=== PATIENT | female | born 1990 | race Caucasian/White ===

== ENCOUNTER 2017-11-09 10:32 | Observation (INO) | payer OTHER ==
--- NOTE | 2017-11-09 10:56 | EDPHY ---
HPI/HX/ROS/PE/MDM Narrative: CHIEF COMPLAINT: Pain under right rib HPI: This patient is a 26 year old female complaining of pain under her right ribs. She has had similar pain about once per year in the past, but this year it has become more frequent. This week, she has had similar pain several times. The pain is localized under her right rib and radiates across her chest and to her back. The discomfort seems to be associated with consumption of fatty foods. She endorses vomiting due to pain. She denies fever, diarrhea, urinary complaints, shortness of breath, or other associated symptoms. REVIEW OF SYSTEMS: Aside from elements discussed in the HPI, a comprehensive 10-point review of systems was reviewed and is negative. PMH: Foot surgery SOCIAL HISTORY: Student at [employer]. Family at bedside. Lives in [place]. PHYSICAL EXAM: General:Patient is alert, in no acute distress. ENT:Eyes are normal to inspection. ENT inspection normal. Neck: Normal inspection. Full range of motion. Respiratory:No respiratory distress. Breath sounds normal bilaterally. Cardiovascular: Regular rate and rhythm. Strong peripheral pulses. Normal cap refill. Abdomen: Severe epigastric and right upper quadrant tenderness. There are no peritoneal signs. There are normal bowel sounds. Back: Normal to inspection. No tenderness to palpation. Skin: Normal color. No rash. Warm and dry. Extremities: Normal appearance. Full range of motion. Neuro: Oriented x3. Normal motor function. Normal sensory function. ED Course: This patient is a 26 year old female presenting with episodes of upper abdominal pain, particularly after consumption of fatty foods. Exam reveals severe epigastric and right upper quadrant tenderness. Plan to administer Toradol for pain relief. Labs including CBC, BMP, BHCG, Liver, Lipase. Plan for ultrasound abdomen to r/o cholecystitis or other acute processes. BHCG positive. I will not administer Toradol at this time. Plan for BHCG quantitative. Reviewed additional laboratory studies. AST/ALT elevated. 11:[address] Arboleda, radiologist. US abdomen positive for 1.2cm gallstone at gallbladder neck. Plan for additional US to evaluate for IUP. 13:[address] Arboleda, radiologist. Obstetric US positive for IUP at 8 weeks 3 days. Discussed results of US and BHCG with patient. She is currently taking oral control pills and is surprised by this result. She will reveal this to her family. She plans to proceed with surgical intervention for cholecystitis. Consulted with patient and her family. They request Dr. Day for surgery. Plan to consult with general surgery prescriptionist. Dr. Day is not available at this time. Family accepts consult with Dr. Hartman, general surgeon prescriptionist. 13:[address] Hartman. He will consult. 14:05 Dr. Hartman accepts admission for perioperative management of cholecystitis. - Data Points Imaging Results: Imaging Impressions Abdomen Ultrasound 11/09/17 10:57 Impression: 1. Cholelithiasis with 1.5 cm gallstone lodged in the gallbladder neck, gallbladder wall thickening with pericholecystic fluid, suggesting acute cholecystitis. 2. No biliary ductal dilation. Findings and recommendations discussed with Emergency Department physician, Yonis Kent MD at 11:35 hour, 11/09/2017. Final report concurs with initial preliminary interpretation. Obstetrics Ultrasound 11/09/17 11:52 Impression: 1. Single viable intrauterine gestation with estimated gestational age of 8 weeks 3 days. 2. FHR = 164 BPM. 3. Recommend followup anatomy scan between 19 and 20 weeks gestation. 4. Complex cystic 9 mm structure from the myometrium extending into the gestational sac representing vanishing twin versus a small subchorionic hemorrhage. 5. No adnexal masses, or ovarian torsion. Findings and recommendations discussed with Emergency Department physician, Yonis Kent MD at 13:00 hour, 11/09/2017. Final report concurs with initial preliminary interpretation. Imaging: Discussed imaging studies w/ church supervisor Radiologist, I viewed and interpreted images myself Laboratory Results: Laboratory Results 11/09/17 10:55 11/09/17 10:55 11/09/17 11/09/17 11/09/17 10:55 10:55 10:55 WBC RBC Hgb Hct MCV MCH MCHC RDW Plt Count MPV Neut % (Auto) Lymph % (Auto) Adams % (Auto) Eos % (Auto) Baso % (Auto) Nucleat RBC Rel Count Absolute Neuts (auto) Absolute Lymphs (auto) Absolute Monos (auto) Absolute Eos (auto) Absolute Basos (auto) Absolute Nucleated RBC Immature Gran % Immature Gran # Sodium 140 mEq/L mEq/L (134-144) Potassium 3.9 mEq/L mEq/L (3.5-5.2) Chloride 107 mEq/L mEq/L (97-110) Carbon Dioxide 19 mEq/l L mEq/l (22-31) Anion Gap 14 mEq/L mEq/L (8-16) BUN 5 mg/dL L mg/dL (7-23) Creatinine 0.6 mg/dL mg/dL (0.6-1.0) Estimated GFR > 60 Glucose 107 mg/dL H mg/dL (70-100) Calcium 9.8 mg/dL mg/dL (8.5-10.4) Total Bilirubin 1.0 mg/dL mg/dL (0.1-1.4) Conjugated Bilirubin 0.4 mg/dL mg/dL (0.0-0.5) Unconjugated Bilirubin 0.6 mg/dL mg/dL (0.0-1.1) AST 64 IU/L H IU/L (14-46) ALT 164 IU/L H IU/L (9-52) Alkaline Phosphatase 71 IU/L IU/L (38-126) Total Protein 7.2 g/dL g/dL (6.3-8.2) Albumin 4.2 g/dL g/dL (3.5-5.0) Lipase 72 IU/L IU/L (23-300) Beta HCG, Qual POSITIVE Beta HCG, Quant 11910.00 mIU/mL H mIU/mL (0.00-4.83) 11/09/17 10:55 WBC 10.83 10^3/uL H 10^3/uL (3.80-9.50) RBC 4.46 10^6/uL 10^6/uL (4.18-5.33) Hgb 13.7 g/dL g/dL (12.6-16.3) Hct 38.6 % % (38.0-47.0) MCV 86.5 fL fL (81.5-99.8) MCH 30.7 pg pg (27.9-34.1) MCHC 35.5 g/dL g/dL (32.4-36.7) RDW 12.2 % % (11.5-15.2) Plt Count 235 10^3/uL 10^3/uL (150-400) MPV 8.9 fL fL (8.7-11.7) Neut % (Auto) 77.1 % H % (39.3-74.2) Lymph % (Auto) 14.7 % L % (15.0-45.0) Adams % (Auto) 7.6 % % (4.5-13.0) Eos % (Auto) 0.0 % L % (0.6-7.6) Baso % (Auto) 0.3 % % (0.3-1.7) Nucleat RBC Rel Count 0.0 % % (0.0-0.2) Absolute Neuts (auto) 8.36 10^3/uL H 10^3/uL (1.70-6.50) Absolute Lymphs (auto) 1.59 10^3/uL 10^3/uL (1.00-3.00) Absolute Monos (auto) 0.82 10^3/uL H 10^3/uL (0.30-0.80) Absolute Eos (auto) 0.00 10^3/uL L 10^3/uL (0.03-0.40) Absolute Basos (auto) 0.03 10^3/uL 10^3/uL (0.02-0.10) Absolute Nucleated RBC 0.00 10^3/uL 10^3/uL (0-0.01) Immature Gran % 0.3 % % (0.0-1.1) Immature Gran # 0.03 10^3/uL 10^3/uL (0.00-0.10) Sodium Potassium Chloride Carbon Dioxide Anion Gap BUN Creatinine Estimated GFR Glucose Calcium Total Bilirubin Conjugated Bilirubin Unconjugated Bilirubin AST ALT Alkaline Phosphatase Total Protein Albumin Lipase Beta HCG, Qual Beta HCG, Quant Medications Given: Discontinued Medications Ketorolac Tromethamine (Toradol) 15 mg IVP EDNOW ONE Stop: 11/09/17 13:27 Last Admin: 11/09/17 13:30 Dose: 15 mg General Time Seen by Provider: 11/09/17 10:33 Initial Vital Signs: Initial Vital Signs Temperature (C) 36.8 C 11/09/17 10:45 Heart Rate 74 11/09/17 10:45 Respiratory Rate 16 11/09/17 10:45 Blood Pressure 124/66 H 11/09/17 10:45 O2 Sat (%) 99 11/09/17 10:45 O2 Delivery Mode Room Air Allergies/Adverse Reactions: No Known Allergies Allergy (Unverified 11/09/17 10:44) Home Medications: Medication Instructions Recorded Levothyroxine [Synthroid 100 mcg 100 mcg PO DAILY06 11/09/17 (*)] Norethindrone AC-Eth Estradiol 1 each PO DAILY 11/09/17 [Nirali 1.5 mg-30 Mcg Tablet] Departure - Departure Disposition: [facility] Inpatient Acute Clinical Impression: Cholecystitis Condition: Good Report Scribed for: Yonis Kent Report Scribed by: Ginny Jones Date of Report: 11/09/17 Time of Report: 10:56 Physician Review and Approval Statement: Portions of this note were transcribed by an ED scribe. I personally performed the history, physical exam, and medical decision making; and confirm the accuracy of the information in the transcribed note.
[2017-11-09 11:08] LABS: PLATELET COUNT 235 10^3/uL (150-400)
[2017-11-09] MEDS ORDERED: KETOROLAC 30 MG/1 ML SDV IVP ONE (13:26)
[2017-11-09] MEDS ORDERED: KETOROLAC 15 MG/1 ML SDV ONE (13:29)
[2017-11-09] MEDS ORDERED: ONDANSETRON 4 MG/2 ML VIAL IVP ONE (14:18)
[2017-11-09] MEDS ORDERED: DEXAMETHASONE 4 MG/ML VIAL IVP ONE (14:18)
[2017-11-09] MEDS ORDERED: ceFAZolin 2 GM/SWFI 2 GM/20 ML SYR IVP ONE (14:18)
[2017-11-09] MEDS ORDERED: ONDANSETRON 4 MG/2 ML VIAL IVP PRN ×3 (14:20→18:49)
[2017-11-09] MEDS ORDERED: LR 1,000 ML IV SCH ×2 (14:30→19:00)
--- NOTE | 2017-11-09 14:39 | GHP ---
[f rep st] HISTORY AND PHYSICAL DATE OF ADMISSION: 11/09/2017 CHIEF COMPLAINT: Right upper quadrant pain. HISTORY OF PRESENT ILLNESS: Numerous attacks of right upper quadrant pain for this 26-year-old femal tiarra, the current one lasting for 3 days. An ultrasound in the emergency room shows a stone impacted in the neck of the gallbladder. Laboratory exams are normal. Urine test was positive. The patient apparently has an 8-week unsuspected intrauterine despite taking control pill s. Apparently, she does not want to maintain this , but we will not be dealing with that to day. ALLERGIES: None. CURRENT MEDICATIONS: control pills, levothyroxine. PREVIOUS SURGERY: Right foot x2. REVIEW OF SYSTEMS: Denies asthma, heart trouble, diabetes, epilepsy, rheumatic fever. SOCIAL HISTORY: Nonsmoker. No alcohol use. 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 PHYSICAL EXAMINATION: GENERAL: Pleasant female in minimal distress. HEENT: No scleral icterus. P harynx clear. NECK: Supple without adenopathy. LUNGS: Clear. HEART: Normal S1, S2 without murmu r. ABDOMEN: Soft but a positive Masterson sign is present. A piercing is present in the left lower qu adrant. EXTREMITIES: Grossly normal. NEUROLOGIC: Grossly normal. ASSESSMENT: Impacted stone in the neck of the gallbladder, 3 days of pain. RECOMMENDATIONS: Laparoscopic cholecystectomy. The risks and benefits of the proposed procedure, in cluding the potential for infection, bleeding, injury to other structures, need for an open operation , etc., were explained to the patient. /[id number]/MODL
--- NOTE | 2017-11-09 16:12 | PDANEPAE ---
ANE History of Present Illness laparoscopic cholecystectomy ANE Past Medical History - Pulmonary History Hx Oxygen in Use at Home: No Hx Sleep Apnea: No Sleep Apnea Screening Result - Last Documented: Negative - Endocrine History Hx Diabetes: No Hypothyroid: Yes ANE Review of Systems Review of systems is: negative Review of Systems: - Exercise capacity Exercise capacity: >=4 METS ANE Patient History - Allergies Allergies/Adverse Reactions: No Known Allergies Allergy (Unverified 11/09/17 10:44) - Home Medications Home medications: home medication list seen and reviewed Home Medications: Levothyroxine [Synthroid 100 mcg (*)] 100 mcg PO DAILY06 11/09/17 [Last Taken ] Norethindrone AC-Eth Estradiol [Nirali 1.5 mg-30 Mcg Tablet] 1 each PO DAILY 11/26 [Last Taken 11/08/17] - NPO status NPO Since - Liquids (Date): 10/09/18 NPO Since - Liquids (Time): 09:30 NPO Since - Solids (Date): 11/08/17 NPO Since - Solids (Time): 20:30 - Anes Hx Anes Hx: post operative nausea - Smoking Hx Smoking Status: Former smoker - Family Anes Hx Family Anes Hx: none ANE Labs/Vital Signs - Labs Result Diagrams: 11/09/17 10:55 11/09/17 10:55 - Vital Signs Blood Pressure: 116/69 Heart Rate: 77 Respiratory Rate: 16 O2 Sat (%): 96 Height: 177.8 cm Weight: 81.647 kg ANE Physical Exam - Airway Neck exam: FROM Mallampati Score: Class 1 Mouth exam: normal dental/mouth exam - Pulmonary Pulmonary: no respiratory distress - Cardiovascular Cardiovascular: regular rate and rhythym - ASA Status ASA Status: II ANE Anesthesia Plan Anesthesia Plan: general endotracheal anesthesia
[2017-11-09] MEDS ORDERED: ceFAZolin 2 GM/SWFI 20 ML SYR IVP ONE (16:35)
[2017-11-09] MEDS ORDERED: BUPIVACAINE 0.5% 30 ML SDV ONE (16:43)
[2017-11-09] MEDS ORDERED: ROCURONIUM 50 MG/5 ML VIAL ONE ×2 (17:02→18:03)
[2017-11-09] MEDS ORDERED: fentaNYL 250 MCG/5 ML INJ ONE (17:02)
[2017-11-09] MEDS ORDERED: PROPOFOL 200 MG/20 ML VIAL ONE ×2 (17:02→17:16)
[2017-11-09] MEDS ORDERED: ONDANSETRON 4 MG/2 ML VIAL ONE (17:02)
[2017-11-09] MEDS ORDERED: LIDOCAINE 2% 100 MG/5 ML SYR ONE (17:02)
[2017-11-09] MEDS ORDERED: SUGAMMADEX SODIUM 200 MG/2 ML VIAL IVP ONE ×2 (17:02→17:44)
[2017-11-09] MEDS ORDERED: DEXAMETHASONE 4 MG/ML VIAL ONE (17:02)
[2017-11-09] MEDS ORDERED: DEXAMETHASONE 4 MG/ML VIAL IVP PRN (18:06)
[2017-11-09] MEDS ORDERED: OXYCODONE/APAP 5/325 TAB PO PRN (18:06)
[2017-11-09] MEDS ORDERED: PROMETHAZINE HCL 25 MG/ML INJ IVP PRN (18:06)
[2017-11-09] MEDS ORDERED: SURGIFLO MATRIX KIT WITH THROMBIN 8ml TP ONE (18:06)
[2017-11-09] MEDS ORDERED: HYDROCODONE/APAP 5/325 TAB PO PRN (18:06)
[2017-11-09] MEDS ORDERED: NALOXONE HCL 0.4 MG/ML INJ IVP PRN (18:06)
[2017-11-09] MEDS ORDERED: ACETAMINOPHEN 500 MG TAB PO PRN (18:06)
[2017-11-09] MEDS ORDERED: MEPERIDINE 25 MG/ML SYR IVP PRN (18:06)
--- NOTE | 2017-11-09 18:08 | POSTANESTH ---
Post Anesthetic Evaluation Cardiovascular Status: Normal, Stable, Similar to Pre-Op Cond Respiratory Status: Normal, Stable, Similar to Pre-op Cond. Level of Consciousness/Mental Status: Can Participate in Eval, Mildly Sleepy, Arousable Pain Control: Inadeq, Add Tx Required Nausea/Vomiting Control: Inadeq, Add Tx Reqired Complications Possibly Related to Anesthesia: None Noted
[2017-11-09] MEDS ORDERED: fentaNYL 100 MCG/2 ML INJ ONE (18:39)
[2017-11-09] MEDS: fentaNYL 100 MCG/2 ML INJ IVP PRN ×2 (18:41→18:49)
[2017-11-09] MEDS ORDERED: PROMETHAZINE HCL 25 MG/ML INJ ONE (18:41)
--- NOTE | 2017-11-09 18:45 | POSTOPPROG ---
Post Op Note Date of Operation: 11/09/17 Surgeon: Keyshawn Hartman Pre-op Diagnosis: cholecystitis, cholelithiasis Post-op Diagnosis: same Indication: same Procedure: lap choly Findings: sick gall bladder Inf/Abcess present in the surg proc area at time of surgery?: No EBL: Minimal
[2017-11-09] MEDS ORDERED: HYDROmorphONE/DILAUDID 1 MG/ML INJ ONE (18:54)
[2017-11-09] MEDS: HYDROmorphONE/DILAUDID 1 MG/ML INJ IVP PRN ×2 (18:56→19:06)
[2017-11-09] MEDS: HYDROCODONE/APAP 5/325 TAB PO PRN (21:58)
[2017-11-10] MEDS: HYDROCODONE/APAP 5/325 TAB PO PRN ×3 (01:54→08:09)
--- NOTE | 2017-11-10 07:47 | GDS ---
[f rep st] DISCHARGE SUMMARY PRESENT ILLNESS: Patient was admitted with cholecystitis, cholelithiasis. HOSPITAL COURSE: She underwent a laparoscopic cholecystectomy revealing an inflamed gallbladder unev entful recovery. DISPOSITION: Home. FOLLOW UP: With Dr. Hartman within a week. /[id number]/MODL
[2017-11-10 08:05] VITALS: BP 92/59; PULSE 74; RESP 17; TEMP 98; O2SAT 96
== END 2017-11-10 10:08 | disposition home or self-care (01) ==
LOC: FOB 14:47
PROVIDERS: ADMIT Surgery; ATTEND Surgery
PROC: 0FT44ZZ Resection of Gallbladder, Percutaneous Endoscopic Approach (ICD-10-PCS; principal; 2017-11-09 16:56)
DX: K80.00 Calculus of gallbladder with acute cholecystitis without obstruction (principal); E03.9 Hypothyroidism, unspecified; Z33.1 Pregnant state, incidental; Z3A.08 8 weeks gestation of pregnancy
CPT/HCPCS: 47562; 76705; 76801; G0378; 96374; J0171; J0690; J1100; J1170; J1885; J2001; J2405; J2550; J2704; J3010

== ENCOUNTER → 2017-11-25 | Outpatient (CLI) | payer OTHER | LOC: FIMAGING 16:45 | PROVIDERS: ATTEND Family Medicine | DX: Z32.01 Encounter for pregnancy test, result positive (principal); R93.8 Abnormal findings on diagnostic imaging of other specified body structures ==